=== PATIENT | female | born 1945 | race Caucasian/White ===

== ENCOUNTER 2019-09-21 10:58 | Emergency (ER) | payer MEDICARE ==
[~2019-09-21] VITALS: Ht 162.6 cm; Wt 74.4 kg
[2019-09-21 10:58] VITALS: BP_SYST 143
--- NOTE | 2019-09-21 10:58 | NUR ---
Placed in room 2 . Placed on community life director, blood pressure machine and pulse oximeter. To gown for exam. Side rails up. Report given to LEIF Yin.
--- NOTE | 2019-09-21 11:06 | NUR ---
pt arrives via [facility] for CP and pressure. Pt has been having intermittent CP since Saturday. Pt was seen at a clinic today and was told she needed to be seen in an ER. [address]. Current EKG is SR. Pt is AAO x 4. Current CP is 4/10. Pt received nitro x 1 and Aspirin 325mg. Cardica monitor placed.
--- NOTE | 2019-09-21 11:15 | NUR ---
# 18 gauge angiocath placed to RAC. Use of asceptic technique. Opsite placed over site. Blood return noted. Blood for lab drawn from site. Flushed with 10 cc of normal saline. No evidence of infiltration noted. Patient tolerated well.
[2019-09-21] MEDS ORDERED: NACL 0.9% 1,000 ML IV ONE (11:27)
--- NOTE | 2019-09-21 11:28 | NUR ---
ER Dr. Sung at bedside examining patient.
[2019-09-21] MEDS ORDERED: ASPIRIN 81 MG TAB.CHEW PO ONE (11:30)
[2019-09-21 11:36] LABS: BASOPHILS % (AUTO) 0.8 % (0.0-2.0); EOSINOPHILS # (AUTO) 0.1 K/uL (0.0-0.4); EOSINOPHILS % (AUTO) 1.9 % (0.0-4.0); HEMOGLOBIN 14.7 g/dL (12.0-16.0); LYMPHOCYTES # (AUTO) 2.3 K/uL (1.0-5.5); LYMPHOCYTES % (AUTO) 41.6 % (20.5-51.5); MEAN CORPUSCULAR HEMOGLOBIN 33 pg (27-31); MEAN CORPUSCULAR HGB CONC 33 % (32-36); MEAN CORPUSCULAR VOLUME 99 fL (79.0-98.0); MONOCYTES # (AUTO) 0.6 K/uL (0.0-1.0); MONOCYTES % (AUTO) 11.2 % (1.7-9.3); NEUTROPHILS # (AUTO) 2.4 K/uL (1.8-7.7); NEUTROPHILS % (AUTO) 44.5 % (40.0-70.0); PLATELET COUNT (AUTO) 262 K/uL (130-430); RED BLOOD CELL COUNT(AUTO) 4.43 MIL/uL (4.2-6.2); RED CELL DISTRIBUTION WIDTH 13.4 % (9.0-15.0); WHITE BLOOD COUNT (AUTO) 5.5 K/uL (4.8-10.8)
[2019-09-21 11:40] LABS: ANION GAP 13 (5-15); CALCIUM 9.8 mg/dL (8.4-11.0); CHLORIDE 101 mmol/L (98-107); CREATININE 0.89 mg/dL (0.55-1.30); GLUCOSE 105 mg/dL (70-99); POTASSIUM 3.3 mmol/L (3.5-5.1); SODIUM SERUM 137 mmol/L (136-145); UREA NITROGEN, BLOOD 17 mg/dL (8-21)
--- NOTE | 2019-09-21 11:40 | NUR ---
NS 1l currently infusing per MD order.
[2019-09-21 11:45] LABS: ALANINE AMINOTRANSFERASE 22 U/L (12-78); ASPARTATE AMINOTRANSFERASE 21 U/L (10-37); TOTAL BILIRUBIN 0.6 mg/dL (0.0-1.0)
[2019-09-21] MEDS ORDERED: KETOROLAC TROMETHAMINE 30 MG VIAL IVP ONE (11:45)
--- NOTE | 2019-09-21 11:50 | NUR ---
medicated the pt w/ Toradol IVP. Will reassess.
[2019-09-21 12:02] LABS: FREE T4 (FREE THYROXINE) 0.9 ng/dl (0.8-1.5); THYROID STIMULATING HORMONE 4.21 uIu/mL (0.36-3.74)
--- NOTE | 2019-09-21 13:10 | NUR ---
pt reports feeling better. 0/10 CP at the moment
--- NOTE | 2019-09-21 14:20 | NUR ---
Pt has 0/10 CP. Pt will be transferred to [facility].
[2019-09-21 16:06] VITALS: BP_SYST 132
--- NOTE | 2019-09-21 16:10 | NUR ---
Patient to be transferred to [facility] ER. Is being transferred due to higher level of care. Receiving facility has accepting physician and available space. ER physician has signed transfer form. Patient or responsible green party has agreed to transfer and signed form. Patient belongings inventoried and will be sent with patient. Copy of nursing notes, lab reports, EKG, Physicians Orders and X-rays to be sent with patient. Report called to Rudi MORALEZ at receiving facility. Receiving physician is Dr. Cruz. [facility] has been called for transfer. IV is on the RAC 18g patent and infusing well.
== END 2019-09-21 16:06 | disposition short-term general hospital (02) ==
LOC: SED 10:58
DX: I48.0 Paroxysmal atrial fibrillation (principal); R07.89 Other chest pain; I10 Essential (primary) hypertension; E78.00 Pure hypercholesterolemia, unspecified; Z88.6 Allergy status to analgesic agent; Z88.5 Allergy status to narcotic agent; Z88.8 Allergy status to other drugs, medicaments and biological substances
CPT/HCPCS: 36415; 71045; 80053; 84439; 84443; 84484; 85025; 93005; 96374; 99285; J1885; J7030